=== PATIENT | male | born 1975 ===

== ENCOUNTER 2019-05-14 10:25 | Outpatient (CLI) | payer OTHER | END 2019-05-14 10:30 | disposition home or self-care (01) | LOC: RAD 10:25 | DX: R05 Cough (principal) ==

== ENCOUNTER 2019-05-14 11:15 | Outpatient (CLI) | payer OTHER | END 2019-05-14 11:24 | disposition home or self-care (01) | LOC: EKG 11:15 | DX: R00.2 Palpitations (principal) ==